=== PATIENT | female | born 1960 | race Caucasian/White ===

== ENCOUNTER → 2018-05-26 | Outpatient (CLI) | payer BC ==
[~2018-05-26] MED LIST: CETI-169 PO; CETI-176 PO; CHOL200022 PO; GLUC-135 PO
--- NOTE | 2018-05-27 13:46 | RADIOLOGY IMAGING REPORT ---
[place] [facility] [place] NAME: ERIKA VU : [id number] MR: [id number] V: [id number] EXAM DATE: ORDERING PHYSICIAN: ARACELIS KELLER TECHNOLOGIST: Mala Owens PROCEDURE:BILATERAL DIGITAL SCREENING MAMMOGRAM WITH CAD ASSISTED INTERPRETATION & 3D TOMOSYNTHESIS COMPARISON:Prior mammograms 04/21/17, 04/21/13, 04/06/12. INDICATIONS:SCREENING FINDINGS: Breasts have scattered fibroglandular parenchymal densities. There are no mammographic findings concerning for malignancy. No significant change from priors. DIAGNOSTIC CATEGORY 1--NEGATIVE. RECOMMENDATIONS: ROUTINE MAMMOGRAM AND CLINICAL EVALUATION IN 1 YEAR. IMPRESSION: BIRADS 1: Negative. Dictated by: Charlie Donovan on 05/27/2018 at 9:18 Transcribed by: JOLEEN on 05/27/2018 at 10:47 Approved by: Charlie Donovan on 05/27/2018 at 13:45 [facility]
== END ==
LOC: MAMO 00:52
PROVIDERS: ATTEND Internal Medicine
DX: Z12.31 Encounter for screening mammogram for malignant neoplasm of breast (principal)
CPT/HCPCS: 77063; 77067